=== PATIENT | male | born 1990 | race Hispanic/Latino ===

== ENCOUNTER 2019-01-06 23:07 | Emergency (ER) | payer SELFPAY ==
[2019-01-07 00:22] LABS: Absolute Monocytes 0.7 K/uL (0.1-1.3); Absolute Neutrophil 7.5 K/uL (1.8-8.0); Basophils % 0.2 % (0-1.3); Eosinophils % 0.9 % (0-4.4); Hematocrit 43.6 % (39.6-49.0); Lymphocytes % 10.7 % (15.3-44.8); MPV 8.8 fL (7.6-11.3); Monocytes % 7.4 % (3.3-12.3); RBC Red Blood Cell Count 4.86 M/uL (4.33-5.43)
[2019-01-07] MEDS ORDERED: DEXAMETHASONE 10 MG/ML VIAL ONE (00:34)
[2019-01-07 00:35] LABS: ALT/SGPT 35 U/L (12-78); AST/SGOT 22 U/L (15-37); Albumin 4.2 g/dL (3.4-5.0); Alkaline Phosphatase 77 U/L (45-117); BUN Blood Urea Nitrogen 19 mg/dL (7-18); Bicarbonate 30 mmol/L (21-32); Bilirubin Total 0.5 mg/dL (0.2-1.0); Glucose Level 94 mg/dL (74-106); Potassium 3.9 mmol/L (3.5-5.1); Protein, Total 7.6 g/dL (6.4-8.2); Sodium Level 140 mmol/L (136-145)
[2019-01-07] MEDS ORDERED: ONDANSETRON 4 MG/2 ML VIAL ONE (00:35)
[2019-01-07] MEDS ORDERED: DIAZEPAM 5 MG TABLET ONE (00:35)
[2019-01-07] MEDS ORDERED: NA CHLORIDE 0.9% 1,000 ML ONE (00:35)
[2019-01-07] MEDS ORDERED: KETOROLAC 30 MG/ML INJ ONE (00:35)
--- NOTE | 2019-01-07 01:24 | EDPHYS ---
Physician Documentation [facility] Name: Jovani Baker Age: 28 yrs Sex: Male : 1990 Arrival Date: 01/06/2019 Time: 23:12 Bed 7 Private MD: ED Physician Sha Mcclure HPI: 01/06 23:51 This 28 yrs old Male presents to ER via Unassigned with complaints of Back karlo Pain. 23:51 The patient presents with pain that is acute. The symptoms are located in the low back, karlo left low back, left mid back, right mid back and right low back. Onset: The symptoms/episode began/occurred 2 day(s) ago. The pain radiates to the lumbar spine. Associated signs and symptoms: The patient has no apparent associated signs or symptoms. The problem was sustained when bending over. Severity of symptoms: At their worst the symptoms were mild, moderate, in the emergency department the symptoms are unchanged. Historical: - Allergies: 01/07 00:23 No Known Allergies; bb - Home Meds: 00:23 None [Active]; bb - PMHx: 00:23 None; bb - PSHx: 00:23 None; bb - Immunization history:: Adult Immunizations up to date. - Social history:: Smoking status: Patient/guardian denies using tobacco, Patient/guardian denies using alcohol. - Family history:: not pertinent. - Ebola Screening: : No symptoms or risks identified at this time. ROS: 01/06 23:51 Constitutional: Negative for fever, chills, and weight loss, Eyes: Negative for injury, karlo pain, redness, and discharge, ENT: Negative for injury, pain, and discharge, Neck: Negative for injury, pain, and swelling, Cardiovascular: Negative for chest pain, palpitations, and edema, Respiratory: Negative for shortness of breath, cough, wheezing, and pleuritic chest pain, Abdomen/GI: Negative for abdominal pain, nausea, vomiting, diarrhea, and constipation, : Negative for injury, bleeding, discharge, and swelling, MS/Extremity: Negative for injury and deformity, Skin: Negative for injury, rash, and discoloration, Neuro: Negative for headache, weakness, numbness, tingling, and seizure, Psych: Negative for depression, anxiety, suicide ideation, homicidal ideation, and hallucinations, Allergy/Immunology: Negative for hives, rash, and allergies, Endocrine: Negative for neck swelling, polydipsia, polyuria, polyphagia, and marked weight changes, Hematologic/Lymphatic: Negative for swollen nodes, abnormal bleeding, and unusual bruising. Back: Positive for decreased range of motion, pain at rest, pain with movement, radiated pain, of the lumbar area and right low back. Exam: 23:51 Constitutional: This is a well developed, well nourished patient who is awake, alert, karlo and in no acute distress. Head/Face: Normocephalic, atraumatic. Eyes: Pupils equal round and reactive to light, extra-ocular motions intact. Lids and lashes normal. Conjunctiva and sclera are non-icteric and not injected. Cornea within normal limits. Periorbital areas with no swelling, redness, or edema. ENT: Nares patent. No nasal discharge, no septal abnormalities noted. Tympanic membranes are normal and external auditory canals are clear. Oropharynx with no redness, swelling, or masses, exudates, or evidence of obstruction, uvula midline. Mucous membranes moist. Neck: Trachea midline, no thyromegaly or masses palpated, and no cervical lymphadenopathy. Supple, full range of motion without nuchal rigidity, or vertebral point tenderness. No Meningismus. Chest/axilla: Normal chest wall appearance and motion. Nontender with no deformity. No lesions are appreciated. Cardiovascular: Regular rate and rhythm with a normal S1 and S2. No gallops, murmurs, or rubs. Normal PMI, no JVD. No pulse deficits. Respiratory: Lungs have equal breath sounds bilaterally, clear to auscultation and percussion. No rales, rhonchi or wheezes noted. No increased work of breathing, no retractions or nasal flaring. Abdomen/GI: Soft, non-tender, with normal bowel sounds. No distension or tympany. No guarding or rebound. No evidence of tenderness throughout. Male : Normal genitalia with no discharge or lesions. Skin: Warm, dry with normal turgor. Normal color with no rashes, no lesions, and no evidence of cellulitis. MS/ Extremity: Pulses equal, no cyanosis. Neurovascular intact. Full, normal range of motion. Neuro: Awake and alert, GCS 15, oriented to person, place, time, and situation. Cranial nerves II-XII grossly intact. Motor strength 5/5 in all extremities. Sensory grossly intact. Cerebellar exam normal. Normal gait. Psych: Awake, alert, with orientation to person, place and time. Behavior, mood, and affect are within normal limits. 23:51 Back: pain, that is mild, that is moderate, ROM is painful, normal spinal alignment noted, CVA tenderness, is absent, muscle spasm, is appreciated in the lumbar area, left low back, left mid back, right mid back and right low back. Vital Signs: 23:30 BP 137 / 85; Pulse 71; Resp 16 S; Temp 98.7(O); Pulse Ox 99% on R/A; Weight 99.79 kg bb (R); Height 6 ft. 0 in. (182.88 cm) (R); Pain 9/10; 01/07 01:28 BP 143 / 81; Pulse 68; Resp 16; Temp 98.7; Pulse Ox 99% on R/A; Pain 8/10; ak1 01/06 23:30 Body Mass Index 29.84 (99.79 kg, 182.88 cm) MDM: 01/06 23:33 Patient medically screened. [facility] 23:54 Data reviewed: vital signs, nurses notes, lab test result(s), radiologic studies, CT karlo scan. 01/06 23:51 Order name: CBC with Diff; Complete Time: 01:23 [facility] 01/06 23:51 Order name: Comprehensive Metabolic Panel; Complete Time: 01:23 karlo 01/06 23:51 Order name: CT Lumbar Spine Wo Con [facility] 01/07 02:01 Order name: Urine Dipstick--Ancillary (enter results); Complete Time: 02:37 [facility] 01/06 23:51 Order name: Urine Dipstick-Ancillary (obtain specimen); Complete Time: 01:32 [facility] Administered Medications: 01/07 00:31 Drug: NS 0.9% 1000 ml Route: IV; Rate: 1 bolus; Site: right antecubital; ak1 01:30 Follow up: IV Status: Completed infusion; IV Intake: 1000ml ak1 00:31 Drug: Valium 5 mg Route: PO; ak1 01:30 Follow up: Response: No adverse reaction ak1 00:31 Drug: Decadron - Dexamethasone 10 mg Route: IVP; Site: right antecubital; ak1 01:30 Follow up: Response: No adverse reaction ak1 00:31 Drug: Zofran 4 mg Route: IVP; Site: right antecubital; ak1 01:29 Follow up: Response: No adverse reaction; Nausea is decreased ak1 00:32 Drug: TORadol 30 mg Route: IVP; Site: right antecubital; ak1 01:30 Follow up: Response: No adverse reaction ak1 02:50 Not Given (Patient Refused): morphine 4 mg IVP once ak1 Disposition: 01/07/19 01:23 Discharged to Home. Impression: Low back pain, Sciatica, right side, Sciatica. - Condition is Stable. - Discharge Instructions: Back Pain, Adult, Musculoskeletal Pain, Sciatica, Back Injury Prevention, [id number], Back Pain, Adult, [id number]. - Prescriptions for dexamethasone 4 mg Oral tablet - take 1 tablet by ORAL route 2 times per day; 10 tablet. Ibuprofen 600 mg Oral Tablet - take 1 tablet by ORAL route every 6 hours As needed take with food; 30 tablet. Tylenol- Codeine #3 300-30 mg Oral Tablet - take 2 tablet by ORAL route every 6 hours As needed; 30 tablet. Valium 5 mg Oral Tablet - take 1 tablet by ORAL route every 8 hours As needed; 20 tablet. - Medication Reconciliation Form, Thank You Letter, Antibiotic Education, Prescription Opioid Use, Work release form form. - Follow up: Private Physician; When: 2 - 3 days; Reason: Recheck today's complaints, Continuance of care, Re-evaluation by your physician. Follow up: Tyrone Peralta; When: 2 - 3 days; Reason: Recheck today's complaints, Re-evaluation by your physician. - Problem is new. - Symptoms have improved. Signatures: Dispatcher [employer] Sha Emerson MD MD cha Therrien, Shelly, BERTIN-C MEDICAL RECORD ADMINISTRATOR-Geovanna Huang, TAPAN RN Abbie Szymanski RN RN ak1 Corrections: (The following items were deleted from the chart) 02:51 01:23 01/07/2019 01:23 Discharged to Home. Impression: Low back pain; Sciatica, right ak1 side; Sciatica. Condition is Stable. Discharge Instructions: Back Pain, Adult, Musculoskeletal Pain, Sciatica, Back Injury Prevention, [id number]-[id number], Back Pain, Adult, [id number]. Prescriptions for dexamethasone 4 mg Oral tablet - take 1 tablet by ORAL route 2 times per day; 10 tablet, Ibuprofen 600 mg Oral Tablet - take 1 tablet by ORAL route every 6 hours As needed take with food; 30 tablet, Tylenol-Codeine #3 300-30 mg Oral Tablet - take 2 tablet by ORAL route every 6 hours As needed; 30 tablet, Valium 5 mg Oral Tablet - take 1 tablet by ORAL route every 8 hours As needed; 20 tablet. and Forms are Medication Reconciliation Form, Thank You Letter, Antibiotic Education, Prescription Opioid Use. Follow up: Private Physician; When: 2 - 3 days; Reason: Recheck today's complaints, Continuance of care, Re-evaluation by your physician. Follow up: Tyrone Peralta; When: 2 - 3 days; Reason: Recheck today's complaints, Re-evaluation by your physician. Problem is new. Symptoms have improved. karlo
--- NOTE | 2019-01-07 01:24 | ER ---
Nurse's Notes [facility] Name: Jovani Baker Age: 28 yrs Sex: Male : 1990 Arrival Date: 01/06/2019 Time: 23:12 Bed 7 Private MD: Diagnosis: Low back pain;Sciatica, right side;Sciatica Presentation: 01/06 23:30 Presenting complaint: Patient states: he is having severe right sided back pain bb radiating down his right leg since yesterday pt states he has had similar symptoms in the past but never this bad before. Transition of care: patient was not received from another setting of care. Onset of symptoms was January 05, 2019. Risk Assessment: Do you want to hurt yourself or someone else? Patient reports no desire to harm self or others. Initial Sepsis Screen: Does the patient meet any 2 criteria? No. Patient's initial sepsis screen is negative. Does the patient have a suspected source of infection? No. Patient's initial sepsis screen is negative. Care prior to arrival: None. 23:30 Method Of Arrival: Wheelchair bb 23:30 Acuity: ROSANNE 3 bb Historical: - Allergies: 01/07 00:23 No Known Allergies; bb - Home Meds: 00:23 None [Active]; bb - PMHx: 00:23 None; bb - PSHx: 00:23 None; bb - Immunization history:: Adult Immunizations up to date. - Social history:: Smoking status: Patient/guardian denies using tobacco, Patient/guardian denies using alcohol. - Family history:: not pertinent. - Ebola Screening: : No symptoms or risks identified at this time. Screenin:50 Abuse screen: Denies threats or abuse. Denies injuries from another. Nutritional ak1 screening: No deficits noted. Tuberculosis screening: No symptoms or risk factors identified. Fall Risk IV access (20 points). Assessment: 00:48 General: Appears uncomfortable, Behavior is calm, cooperative, appropriate for age. ak1 Pain: Complains of pain in back. Neuro: Level of Consciousness is awake, alert, obeys commands, Oriented to person, place, time, situation, Machine Bunch Maker are equal bilaterally Moves all extremities. Gait is shuffling, Speech is normal. Cardiovascular: No deficits noted. Respiratory: No deficits noted. GI: No signs and/or symptoms were reported involving the gastrointestinal system. : No signs and/or symptoms were reported regarding the genitourinary system. EENT: No signs and/or symptoms were reported regarding the EENT system. Derm: No signs and/or symptoms reported regarding the dermatologic system. Musculoskeletal: Reports pain in back since after working on [employer] today. pt took OTC medication NSAID made pt nauseated and vomit X3. . 00:51 Reassessment: pt decided to wait and not take the morphine that was ordered. ak1 01:22 Reassessment:. Musculoskeletal: Range of motion: limited. pt able to sit up and stand. ak1 pt stated increased pain with ambulation. pt placed in wheelchair and assisted to restroom. Vital Signs: 01/06 23:30 BP 137 / 85; Pulse 71; Resp 16 S; Temp 98.7(O); Pulse Ox 99% on R/A; Weight 99.79 kg bb (R); Height 6 ft. 0 in. (182.88 cm) (R); Pain 9/10; 01/07 01:28 BP 143 / 81; Pulse 68; Resp 16; Temp 98.7; Pulse Ox 99% on R/A; Pain 8/10; ak1 01/06 23:30 Body Mass Index 29.84 (99.79 kg, 182.88 cm) bb ED Course: 01/06 23:12 Patient arrived in ED. es 23:30 Arm band placed on Patient placed in an exam room, on a stretcher, on pulse oximetry. bb Family accompanied patient. 23:33 Sha Mcclure MD is Attending Physician. karlo 23:53 Abbie Arguelles, TAPAN is Primary Nurse. ak1 01/07 00:23 Triage completed. bb 00:30 Inserted saline lock: 20 gauge in right antecubital area, using aseptic technique. oe Blood collected. 00:48 CT Lumbar Spine Wo Con In Process Unspecified. EDMS 00:51 Patient has correct armband on for positive identification. Bed in low position. Call ak1 light in reach. Side rails up X2. Pulse ox on. NIBP on. 01:23 Tyrone Peralta MD is Referral Physician. karlo 01:29 No provider procedures requiring assistance completed. ak1 02:50 IV discontinued, intact, bleeding controlled, No redness/swelling at site. Pressure ak1 dressing applied. Administered Medications: 00:31 Drug: NS 0.9% 1000 ml Route: IV; Rate: 1 bolus; Site: right antecubital; ak1 01:30 Follow up: IV Status: Completed infusion; IV Intake: 1000ml ak1 00:31 Drug: Valium 5 mg Route: PO; ak1 01:30 Follow up: Response: No adverse reaction ak1 00:31 Drug: Decadron - Dexamethasone 10 mg Route: IVP; Site: right antecubital; ak1 01:30 Follow up: Response: No adverse reaction ak1 00:31 Drug: Zofran 4 mg Route: IVP; Site: right antecubital; ak1 01:29 Follow up: Response: No adverse reaction; Nausea is decreased ak1 00:32 Drug: TORadol 30 mg Route: IVP; Site: right antecubital; ak1 01:30 Follow up: Response: No adverse reaction ak1 02:50 Not Given (Patient Refused): morphine 4 mg IVP once ak1 Intake: 01:30 IV: 1000ml; Total: 1000ml. ak1 Outcome: 01:23 Discharge ordered by MD. dietrich 02:50 Discharged to home ambulatory, with family, pt with steady gait at discharge. pt stated ak1 his pain was down to a 2/10. 02:50 Condition: good 02:50 Discharge instructions given to patient, family, Instructed on discharge instructions, follow up and referral plans. no drinking with medication, no driving heavy equipment, medication usage, Demonstrated understanding of instructions, follow-up care, medications, Prescriptions given X 4. 02:51 Patient left the ED. ak1 Signatures: Dispatcher [employer] Sha Emerson MD MD cha Salyer, Edna es Ballard, Brenda RN RN Abbie Szymanski RN RN [email or web address] Aydin Barbosa
[2019-01-07 02:08] LABS: Urine Blood NEGATIVE (NEG); Urine Glucose NEGATIVE (NEG); Urine Protein NEGATIVE (NEG)
--- NOTE | 2019-01-08 11:24 | RAD REPORT ---
EXAM DESCRIPTION: CT - Spine Lumbar Wo Con - 01/07/2019 6:14 am CLINICAL HISTORY: 28 years Male LOWER BACK PAIN TECHNIQUE: Contiguous axial CT images obtained through the lumbar spine without IV contrast. Coron al and sagittal reformatted images also provided. This CT exam was performed according to our departmental dose-optimization program, which includes on e or more of the following dose reduction techniques: automated exposure control, adjustment of the m A and/or kV according to patient size, and/or use of iterative reconstruction technique. COMPARISON: No prior exams provided for comparison. FINDINGS: Mild straightening of the normal lumbar lordosis without acute fracture or subluxation. Ve rtebral body and disc space heights are preserved without aggressive osseous lesion. The visualized sacroiliac joints appear normal. Visualized portions of the retroperitoneum and parasp inal soft tissue structures are unremarkable aside from a small splenule. At L5-S1, there is a small broad-based central disc protrusion without central canal stenosis. There is mild bilateral neural foraminal narrowing, left greater than right. IMPRESSION: No lumbar fracture. Mild straightening of the normal lumbar lordosis may reflect muscle spasm. Small broad-based central disc protrusion at L5-S1 with mild bilateral neural foraminal narrowing, le ft greater than right. No other lumbar stenosis. Electronically signed by: Miladis Julian MD 01/07/2019 1:11 AM CDT Due to temporary technical issues with the PACS/Fluency reporting system, reports are being signed by the in house radiologist as a courtesy to ensure prompt reporting. The interpreting radiologist is f ully responsible for the content of the report.
== END 2019-01-07 02:51 | disposition home or self-care (01) ==
LOC: ER 23:07
DX: M54.31 Sciatica, right side (principal)
CPT/HCPCS: 36415; 72131; 80053; 81003; 85025; 96361; 96374; 96375; 99284; J1100; J2405; J7030